=== PATIENT | female | born 1990 ===

== ENCOUNTER 2021-07-11 17:51 | Emergency (ER) | payer MEDICAID, SELFPAY ==
--- NOTE | ~2021-07-11 | CT_ITS ---
EXAMINATION: CT ABDOMEN AND PELVIS WITH CONTRAST CLINICAL INFORMATION: Abdominal pain COMPARISON: CT abdomen pelvis 09/24/2019 TECHNIQUE: Multidetector volumetric images were obtained from the superior aspect of the liver through the pubic symphysis following administration 82 mL of Omnipaque 350 intravenous contrast. Sagittal and coronal reformatted images were obtained on the technologist's workstation. Oral contrast: No This CT examination was performed using dose optimization techniques as appropriate, variously including the following: *Automated exposure control *Adjustment of mA and/or kV according to patient size (this includes techniques or standardized protocols for targeted exams where dose is matched to indication/reason for exam; i.e. extremities or head) *Use of iterative reconstruction technique DLP: 352 mGy-cm FINDINGS: LUNG BASES: The visualized lung bases are unremarkable. LIVER, GALLBLADDER, AND BILIARY TREE: The liver is normal in size, shape, and attenuation. No focal hepatic lesion or biliary ductal dilatation is present. The gallbladder is unremarkable with no evidence of radiopaque gallstones, gallbladder wall thickening, or obvious pericholecystic inflammatory changes. PANCREAS: Unremarkable. SPLEEN: Unremarkable. ADRENAL GLANDS: Unremarkable. KIDNEYS AND URETERS: The kidneys are normal in size, shape, and attenuation. A nonobstructing 3 mm left midpole renal calculus is seen. No hydronephrosis, hydroureter, or other calculi seen. No renal masses are detected. No perinephric stranding. BLADDER: Unremarkable. GASTROINTESTINAL TRACT: The small and large bowel are unremarkable. The appendix is unremarkable. ABDOMINAL WALL: No significant hernia is appreciated. LYMPH NODES: No retroperitoneal lymphadenopathy. VASCULAR: Unremarkable. PELVIC VISCERA: An anteverted uterus is present. An abnormal adnexal mass is not seen. No significant free fluid is present in the cul-de-sac. OSSEOUS STRUCTURES: Unremarkable. CT/CT abdomen pelvis w con IMPRESSION: 1. An etiology for the patient's acute abdominal pain has not been found 2. Incidental note made of a nonobstructing 3 mm left renal calculus.
[2021-07-11 18:18] VITALS: BP 114/84; PULSE 106; RESP 16; TEMP 36.7; O2SAT 98; BMI 25.4
[2021-07-11 20:15] LABS: MANUAL DIFF FLAG NO
[2021-07-11 20:22] LABS: Basophils Percent Auto 0.3 % (0-2); Eosinophils Absolute Auto 0.2 X10*3/uL (0.0-0.4); Eosinophils Percent Auto 1.9 % (0-4); Hematocrit 38.3 % (37-47); Hemoglobin 12.7 g/dl (12.0-16.0); Imm Gran Abs Auto 0.02 X10*3/uL (0.00-0.03); Imm Gran Pct Auto 0.3 % (0.0-0.4); Lymphocytes Absolute Auto 1.2 X10*3/uL (1.2-4.9); Lymphocytes Percent Auto 15.2 % (20-40); Mean Corpuscular HGB Conc 33.2 g/dl (31.0-35.0); Mean Corpuscular Hemoglobin 27.2 pg (27.0-33.0); Monocytes Absolute Auto 0.9 X10*3/uL (0.1-1.2); Monocytes Percent Auto 11.1 % (2-11); Neutrophils Absolute Auto 5.6 X10*3/uL (2.0-8.3); Neutrophils Percent Auto 71.2 % (45-73); Platelet Count 218 X10*3/uL (160-400); Red Blood Count 4.67 X10*6/uL (4.20-5.50); Red Cell Distribution Width 12.4 % (11.0-16.0); White Blood Count 7.8 X10*3/uL (4.8-10.8)
[2021-07-11 20:29] LABS: Alanine Aminotransferase 12 U/L (0-31); Albumin Level 4.3 g/dL (3.5-5.0); Alkaline Phosphatase 50 U/L (39-117); Anion Gap 11 (12-20); Aspartate Amino Transferase 14 U/L (5-31); Bilirubin Total 0.6 mg/dL (0.0-1.0); Blood Urea Nitrogen 10 mg/dL (9-16); Calcium 9.7 mg/dL (8.4-10.2); Carbon Dioxide 26 mmol/L (22-29); Chloride 106 mmol/L (96-108); Creatinine Clr Calc Pharmacy 79.9; Estimated Glomerular Filt Rate > 60; Glucose Random 94 mg/dL (60-115); Potassium 4.5 mmol/L (3.3-5.1); Sodium 138 mmol/L (135-145); Total Protein 7.9 g/dL (6.5-8.0)
[2021-07-11 20:52] LABS: Appearance Urine TURBID; Color Urine RED; Glucose Urine UA NEG (NEG); Leukocyte Esterase Urine TRACE (NEG); Nitrite Urine NEG (NEG); PH 5.5 (5.0-8.0); Specific Gravity - Urine >= 1.030 (1.005-1.025); UACC Culture Trigger YES; Urine Blood 3+ (NEG); Urine Ketones 5 MG/DL (NEG); Urine Protein 2+ MG/DL (NEG-TRACE)
[2021-07-11 21:10] LABS: UPreg QC Valid YES; Urine Pregnancy NEGATIVE (NEGATIVE)
[2021-07-11 21:14] LABS: Bacteria Urine TRACE /LPF; RBC Urine TNTC /HPF (0); Squamous Epithelial Cell Urine TRACE /LPF; WBC Urine 0-2 /HPF (0-4)
[2021-07-11] MEDS: Acetaminophen 325 MG TABLET 975 MG PO (21:33)
[2021-07-11] MEDS: 0.9 % Sodium Chloride 1,000 ML 999 ML IV (21:40)
--- NOTE | 2021-07-11 21:42 | ED_ITS ---
HPI - Abdominal Pain General Chief Complaint: Abdominal Pain Stated Complaint: abd pain Time Seen by Provider: 07/11/21 21:16 Source: patient Mode of arrival: ambulatory History of Present Illness HPI narrative: 31-year-old female with history of asthma presents with right lower/flank pain that started this evening at approximately 7:00 p.m. and has been associated with chills, nausea, vomiting but denies any diarrhea, shortness of breath, or intra-abdominal surgical history. In addition, patient denies any urinary pain/burning/frequency. Related Data Previous Rx's Medication Instructions Recorded tamsulosin 0.4 mg capsule (Flomax) 0.4 mg PO BEDTIME 4 Days #4 cap 07/11/21 Allergies Allergy/AdvReac Type Severity Reaction Status Date / Time No Known Allergies Allergy Unverified 07/19/20 15:55 Review of Systems Review of Systems Pertinent positives or negatives as stated in HPI 10 point review of systems is otherwise negative. Physical Exam Vital Signs: Vital Signs: Last Vital Signs Temp 98.1 F 07/11/21 18:18 Pulse 66 07/11/21 22:47 Resp 16 07/11/21 22:47 BP 115/68 07/11/21 22:48 Pulse Ox 100 07/11/21 22:00 Body Mass Index 25.4 VITAL SIGNS: Reviewed. GENERAL: Well developed, well nourished, in no acute distress. HEAD: Normocephalic/atraumatic EYES: PERRLA, EOMI OROPHARYNX: no oral lesions noted, posterior pharynx clear LUNGS: Normal breath sounds. No adventitious sounds or accessory muscle use. SpO2<98> CARDIOVASCULAR: Regular rate and rhythm without noted murmurs, no JVD or lower extremity edema. ABDOMEN: Soft, tenderness and right lower quadrant without rebound, no CVA tenderness, non-distended with bowel sounds SKIN: Inspection of the skin reveals no rashes NEUROLOGIC: Alert and oriented x 4. Strength and sensation to light touch were grossly intact x 4. Course Course Course Narrative: 31-year-old female with history and clinical presentation suggestive of appendicitis, renal colic, UTI, less likely felt to be pyelonephritis or ovarian torsion and is patient is started your. Less likely to be ectopic although this will be ruled out. Review of all investigations only significant for nonobstructing 3 mm stone. On re-evaluation patient is feeling much better after receiving combination analgesics as well as IV fluids. Patient will be discharged in stable condition she was informed of all results. MDM - Abdominal Pain Lab Data Result diagrams: 07/11/21 20:07 07/11/21 20:07 Labs: Lab Results 07/11/21 07/11/21 07/11/21 Range/Units 20:07 20:07 20:44 WBC 7.8 (4.8-10.8) X10*3/uL RBC 4.67 (4.20-5.50) X10*6/uL Hgb 12.7 (12.0-16.0) g/dl Hct 38.3 (37-47) % MCV 82.0 (80-98) fL MCH 27.2 (27.0-33.0) pg MCHC 33.2 (31.0-35.0) g/dl RDW 12.4 (11.0-16.0) % Plt Count 218 (160-400) X10*3/uL MPV 11.0 (9.4-12.3) fL Immature Gran % (Auto) 0.3 (0.0-0.4) % Neut % (Auto) 71.2 (45-73) % Lymph % (Auto) 15.2 L (20-40) % [place] % (Auto) 11.1 H (2-11) % Eos % (Auto) 1.9 (0-4) % Baso % (Auto) 0.3 (0-2) % Lymph # (Auto) 1.2 (1.2-4.9) X10*3/uL [place] # (Auto) 0.9 (0.1-1.2) X10*3/uL Eos # (Auto) 0.2 (0.0-0.4) X10*3/uL Baso # (Auto) 0.0 (0.0-0.2) X10*3/uL Abs Immat Gran (auto) 0.02 (0.00-0.03) X10*3/uL Absolute Neuts (auto) 5.6 (2.0-8.3) X10*3/uL Absolute Nucleated RBC 0.000 (0.0-0.012) X10*3/uL Nucleated RBC % (auto) 0.0 (0.0-0.2) /100WBC Sodium 138 (135-145) mmol/L Potassium 4.5 (3.3-5.1) mmol/L Chloride 106 (96-108) mmol/L Carbon Dioxide 26 (22-29) mmol/L Anion Gap 11 L (12-20) BUN 10 (9-16) mg/dL Creatinine 0.84 (0.5-1.4) mg/dL Estim Creat Clear Calc 79.9 Estimated GFR > 60 Random Glucose 94 (60-115) mg/dL Calcium 9.7 (8.4-10.2) mg/dL Total Bilirubin 0.6 (0.0-1.0) mg/dL AST 14 (5-31) U/L ALT 12 (0-31) U/L Alkaline Phosphatase 50 (39-117) U/L Total Protein 7.9 (6.5-8.0) g/dL Albumin 4.3 (3.5-5.0) g/dL Urine Color RED Urine Appearance TURBID Urine pH 5.5 (5.0-8.0) Ur Specific [place] >= 1.030 H (1.005-1.025) Urine Protein 2+ H (NEG-TRACE) MG/DL Urine Glucose (UA) NEG (NEG) MG/DL Urine Ketones 5 (NEG) MG/DL Urine Blood 3+ H (NEG) Urine Nitrite NEG (NEG) Ur Leukocyte Esterase TRACE H (NEG) Urine RBC TNTC H (0) /HPF Urine WBC 0-2 (0-4) /HPF Ur Squamous Epith Cells TRACE /LPF Urine Bacteria TRACE /LPF Urine Test (NEGATIVE) 07/11/21 Range/Units 20:44 WBC (4.8-10.8) X10*3/uL RBC (4.20-5.50) X10*6/uL Hgb (12.0-16.0) g/dl Hct (37-47) % MCV (80-98) fL MCH (27.0-33.0) pg MCHC (31.0-35.0) g/dl RDW (11.0-16.0) % Plt Count (160-400) X10*3/uL MPV (9.4-12.3) fL Immature Gran % (Auto) (0.0-0.4) % Neut % (Auto) (45-73) % Lymph % (Auto) (20-40) % [place] % (Auto) (2-11) % Eos % (Auto) (0-4) % Baso % (Auto) (0-2) % Lymph # (Auto) (1.2-4.9) X10*3/uL [place] # (Auto) (0.1-1.2) X10*3/uL Eos # (Auto) (0.0-0.4) X10*3/uL Baso # (Auto) (0.0-0.2) X10*3/uL Abs Immat Gran (auto) (0.00-0.03) X10*3/uL Absolute Neuts (auto) (2.0-8.3) X10*3/uL Absolute Nucleated RBC (0.0-0.012) X10*3/uL Nucleated RBC % (auto) (0.0-0.2) /100WBC Sodium (135-145) mmol/L Potassium (3.3-5.1) mmol/L Chloride (96-108) mmol/L Carbon Dioxide (22-29) mmol/L Anion Gap (12-20) BUN (9-16) mg/dL Creatinine (0.5-1.4) mg/dL Estim Creat Clear Calc Estimated GFR Random Glucose (60-115) mg/dL Calcium (8.4-10.2) mg/dL Total Bilirubin (0.0-1.0) mg/dL AST (5-31) U/L ALT (0-31) U/L Alkaline Phosphatase (39-117) U/L Total Protein (6.5-8.0) g/dL Albumin (3.5-5.0) g/dL Urine Color Urine Appearance Urine pH (5.0-8.0) Ur Specific [place] (1.005-1.025) Urine Protein (NEG-TRACE) MG/DL Urine Glucose (UA) (NEG) MG/DL Urine Ketones (NEG) MG/DL Urine Blood (NEG) Urine Nitrite (NEG) Ur Leukocyte Esterase (NEG) Urine RBC (0) /HPF Urine WBC (0-4) /HPF Ur Squamous Epith Cells /LPF Urine Bacteria /LPF Urine Test NEGATIVE (NEGATIVE) Discharge Plan Discharge Clinical Impression: Renal colic Patient Disposition: Home, Self-Care Instructions: Renal Colic (ED), Ureteral Stones (ED) Additional Instructions: 1. Increase fluid hydration especially with water. Avoid all caffeinated/carbonated beverages when possible. 2. Recommend [id number] Tylenol/ibuprofen as needed for pain control and follow-up with the urologist, provided referral below. Return to the ER for acute worsening of her symptoms. Prescriptions: New tamsulosin [Flomax] 0.4 mg capsule 0.4 mg PO BEDTIME 4 Days Qty: 4 RF: 0 Referrals: Dre Alejandre MD [Physician] - 2 days (Eval for renal stones, 3mm, placed on flomax) PMFSH Past Medical History Source: nursing notes reviewed Social History Social History Advance Directives: No
[2021-07-11] MEDS: Ketorolac Tromethamine 15 MG/ML VIAL IVPUSH (21:44)
[2021-07-11 22:00] VITALS: BP 132/77; PULSE 76; RESP 16; O2SAT 100
[2021-07-11 22:47] VITALS: BP 115/68; PULSE 66; RESP 16
[2021-07-11 22:48] VITALS: BP 115/68
[2021-07-11] MEDS: iohexoL 350 MG/ML 100 ML INFUS..BTL IV (23:01)
== END 2021-07-12 00:08 | disposition home or self-care (01) ==
PROVIDERS: Emergency Medicine; Emergency Provider Student in an Organized Health Care Education/Training Program; PCP Nurse Practitioner Family
DX: N20.0 Calculus of kidney (principal); R10.9 Unspecified abdominal pain
CPT/HCPCS: 36415; 74177; 80053; 81001; 81003; 81025; 85025; 87086; 96361; 96374; 99284; J1885; Q9967

== ENCOUNTER 2022-11-25 08:51 | Emergency (ER) | payer MEDICAID, SELFPAY ==
--- NOTE | ~2022-11-25 | XR_ITS ---
EXAMINATION: XR SHOULDER, LEFT CLINICAL INFORMATION: Atraumatic left shoulder pain with history of repetitive movement COMPARISON: None TECHNIQUE: Four views of the left shoulder. FINDINGS: No fracture or dislocation. The glenohumeral joint is well aligned. The acromioclavicular joint is intact. The visualized lung is clear. The visualized ribs are intact. XR/XR shoulder LT min 2V IMPRESSION: Normal left shoulder.
[2022-11-25 08:56] VITALS: BP 144/89; PULSE 82; RESP 16; TEMP 36.3; O2SAT 100; BMI 23.4
--- OUTSIDE RECORDS SUMMARY | 2022-11-25 09:03 | XMS_ITS | Continuity of Care Document ---
:1990 Author Organization [facility] Adult Address [address] [place] [address]- Care Team Providers Name Role Phone Fariba WHALEN, Tanya Primary Care Physician [facility]counter [facility] Date(s): 05/17/21 - 05/24/21 [facility] [address] [place] [address]- Encounter Diagnosis Generalized anxiety disorder with panic attacks (Discharge Diagnosis) - 05/17/21 Attending Physician: Not on Staff, Attending MD Allergies, Adverse Reactions, Alerts Substance Reaction Severity Status NKA Active Immunizations Given and Recorded Vaccine Date Status Refusal Reason Influenza Virus Vaccine (oldterm) 08/16/20 Recorded tetanus/diphtheria/pertussis, acel(Tdap) 09/23/19 Given tetanus/diphtheria/pertussis, acel(Tdap) 08/11/13 Given tetanus/diphtheria/pertussis, acel(Tdap) 12/11/09 Recorde d influenza virus vaccine, inactivated 09/23/19 Given influenza virus vaccine, inactivated 08/11/13 Given tetanus-diphtheria toxoids (Td) 03/12/01 Recorded Hepatitis B Vaccine (old term) 01/31/01 Recorded Hepatitis B Vaccine (old term) 10/02/00 Recorded Hepatitis B Vaccine (old term) 08/02/00 Recorded Measles/Mumps/Rubella Virus Vaccine 01/01/96 Recorded Measles/Mumps/Rubella Virus Vaccine 10/02/90 Recorded Poliovirus Vaccine, Inactivated 09/03/93 Recorded Poliovirus Vaccine, Inactivated 08/07/92 Recorded Poliovirus Vaccine, Inactivated 07/27/91 Recorded Poliovirus Vaccine, Inactivated 10/11/90 Recorded diphtheria/tetanus/pertussis, acel(DTaP) 02/12/93 Recorde d diphtheria/tetanus/pertussis, acel(DTaP) 08/07/92 Recorde d diphtheria/tetanus/pertussis, acel(DTaP) 07/27/91 Recorde d diphtheria/tetanus/pertussis, acel(DTaP) 10/11/90 Recorde d Haemophilus B Conj Vaccine (oldterm) 10/11/90 Recorded Medications Vistaril pamoate 25 mg oral capsule 1 capsule = 25 mg, By Mouth, Daily, PRN for anxiety, # 10 capsule, 0 Refills, Acute 06/15/21 7:16:00EDT, 05/17/21 7:15:00 EDT, Capsule, [id number], 155, cm, 05/17/21 7:07:00 EDT, Height Start Date: 05/17/21 Stop Date: 06/15/21 Status: Ordered Problem List Condition Effective Dates Status Health Status Informant Asthma(Confirmed) Active High blood pressure(Confirmed) Active Renal calculus, bilateral(Confirmed) Active Paroxysmal vertigo(Confirmed) Active Diagnosis Diagnosis Type Effective Dates Health Clinical Infor mant Status Service Generalized Discharge 05/17/21 anxiety disorder Diagnosis with panic attacks Vital Signs Most recent to oldest [Reference Range]: 1 Height 155 cm (05/17/21 7:07 AM) Social History Social History Type Response Smoking Status Never (less than 100 in life time) entered on: 10/04/20 Sex
--- OUTSIDE RECORDS SUMMARY | 2022-11-25 09:03 | XMS_ITS | Continuity of Care Document ---
:1990 Author Organization [facility] Adult Address [address] [place] [address]- Care Team Providers Name Role Phone Fariba WHALEN, Tanya Primary Care Physician Encounter [facility] Date(s): 10/04/20 - 10/11/20 [facility] [address] [place] [address]- Encounter Diagnosis Nausea in adult (Discharge Diagnosis) - 10/04/20 Attending Physician: Ilir Baldwin MD Allergies, Adverse Reactions, Alerts Substance Reaction [...] Haemophilus B Conj Vaccine (oldterm) 10/11/90 Recorded Problem List Condition Effective Dates Status Health Status Informant Asthma(Confirmed) Active High blood pressure(Confirmed) Active Renal calculus, bilateral(Confirmed) Active Well adult exam(Confirmed) Active Diagnosis Diagnosis Type Effective Dates Health Status Clinical In formant Service Nausea in adult Discharge 10/04/20 Diagnosis Vital Signs Most recent to oldest [Reference Range]: 1 Height 155 cm (10/04/20 9:53 AM) Social History Social History Type Response Smoking Status Never (less than 100 in life time) entered on: 10/04/20 Sex
--- OUTSIDE RECORDS SUMMARY | 2022-11-25 09:03 | XMS_ITS | Continuity of Care Document ---
:1990 Author Organization [facility] Adult Address [address] [place] [address]- Care Team Providers Name Role Phone Fariba WHALEN, Tanya Primary Care Physician [facility]counter [facility] Date(s): 10/04/20 - 11/03/20 [facility] [address] [place] [address]- Attending Physician: AdmTiara herrera Admitting Physician: AdmtrTiara Referring Physician: Admtr, Ar8 Allergies, Adverse Reactions, Alerts Substance Reaction Severity [...] calculus, bilateral(Confirmed) Active Well adult exam(Confirmed) Active Social History Social History Type Response Smoking Status Never (less than 100 in life time) entered on: 10/04/20 Sex
--- OUTSIDE RECORDS SUMMARY | 2022-11-25 09:03 | XMS_ITS | Continuity of Care Document ---
:1990 Author Organization [facility] Adult Address [address] [place] [address]- Care Team Providers Name Role Phone Fariba WHALEN, Tanya Primary Care Physician [facility]counter [facility] Date(s): 12/28/20 - 01/04/21 [facility] [address] [place] [address]- Encounter Diagnosis Paroxysmal vertigo (Discharge Diagnosis) - 12/31/20 Attending Physician: Alma Ray NP Allergies, Adverse Reactions, Alerts Substance Reaction Severity [...] B Conj Vaccine (oldterm) 10/11/90 Recorded Medications No Known Medications Problem List Condition Effective Dates Status Health Status Informant Asthma(Confirmed) Active High blood pressure(Confirmed) Active Renal calculus, bilateral(Confirmed) Active Paroxysmal vertigo(Confirmed) Active Diagnosis Diagnosis Type Effective Dates Health Clinical Infor mant Status Service Paroxysmal Discharge 12/31/20 vertigo Diagnosis Vital Signs Most recent to oldest [Reference Range]: 1 Height 155 cm (12/28/20 2:13 PM) Weight 56.4 kg (12/28/20 2:13 PM) Oxygen Saturation [94-100 %] 99 % (12/28/20 2:13 PM) Pulse Rate [55-90 bpm] 94 bpm *H* (12/28/20 2:13 PM) Body Mass Index [18.5-24.99] 23.48 (12/28/20 2:13 PM) Blood Pressure [90-138/55-84 mm Hg] 118/76 mm Hg (12/28/20 2:13 PM) Respiratory Rate [16-30 br/min] 18 br/min (12/28/20 2:13 PM) Temperature [96.8-100.4 DegF] 98.4 DegF (12/28/20 2:13 PM) Mode of Delivery (Oxygen) Room air (12/28/20 2:13 PM) Blood pressure sites Arm, right (12/28/20 2:13 PM) Temperature Route Oral (12/28/20 2:13 PM) Weight Obtained Via Standing scale (12/28/20 2:13 PM) Social History Social History Type Response Smoking Status Never (less than 100 in life time) entered on: 10/04/20 Sex
--- OUTSIDE RECORDS SUMMARY | 2022-11-25 09:03 | XMS_ITS | Continuity of Care Document ---
:1990 Author Organization [facility] Adult Address [address] [place] [address]- Care Team Providers Name Role Phone Tanya Link NP Primary Care Physician Encounter [facility] Date(s): 08/09/21 - 09/08/21 [facility] [address] [place] [address]- Attending Physician: AdmTiara herrera Admitting Physician: AdmtrTiara [...] B Conj Vaccine (oldterm) 10/11/90 Recorded Medications ondansetron 4 mg oral tablet 1 tablet = 4 mg, By Mouth, Every 8 hours, PRN Nausea, # 15 tablet, 0 Refills, Maintenance, 08/09/21 11:39:00 EDT, [facility]/pharm[facility] #[id number], Partial fill upon patient request if the prescription is for a schedule II opioid drug., 155, cm, 08/09/21 10:42:00 E... Start Date: 08/09/21 Status: Ordered Problem List Condition Effective Dates Status Health Status Informant Asthma(Confirmed) Active High blood pressure(Confirmed) Active Renal calculus, bilateral(Confirmed) Active Paroxysmal vertigo(Confirmed) Active Social History Social History Type Response Smoking Status Never (less than 100 in life time) entered on: 10/04/20 Sex
--- OUTSIDE RECORDS SUMMARY | 2022-11-25 09:03 | XMS_ITS | Continuity of Care Document ---
:1990 Author Organization [facility] Adult Address [address] [place] [address]- Care Team Providers Name Role Phone Fariba WHALEN, Tanya Primary Care Physician Encounter [facility] Date(s): 05/16/21 - 06/15/21 [facility] [address] [place] [address]- Allergies, Adverse Reactions, Alerts Substance Reaction Severity [...]
--- OUTSIDE RECORDS SUMMARY | 2022-11-25 09:03 | XMS_ITS | Continuity of Care Document ---
:1990 Author Organization [facility] Adult Address [address] [place] [address]- Care Team Providers Name Role Phone Fariba WHALEN, Tanya Primary Care Physician Encounter [facility] Date(s): 12/27/20 - 01/26/21 [facility] [address] [place] [address]- Allergies, Adverse Reactions, Alerts Substance Reaction Severity [...]
--- OUTSIDE RECORDS SUMMARY | 2022-11-25 09:03 | XMS_ITS | Continuity of Care Document ---
:1990 Author Organization [facility] Adult Address [address] [place] [address]- Care Team Providers Name Role Phone Tanya Link NP Primary Care Physician Encounter [facility] Date(s): 08/09/21 - 08/16/21 [facility] [address] [place] [address]- Attending Physician: Daniel Gillespie MD Referring Physician: Tanya Link NP Allergies, Adverse Reactions, Alerts Substance Reaction [...] tablet, 0 Refills, Maintenance, 08/09/21 11:39:00 EDT, [facility]/pharmacy #[id number], Partial fill upon patient request if the prescription is for a schedule II opioid drug., 155, cm, 08/09/21 10:42:00 E... Start Date: 08/09/21 Status: Ordered Problem List Condition Effective Dates Status Health Status Informant Asthma(Confirmed) Active High blood pressure(Confirmed) Active Renal calculus, bilateral(Confirmed) Active Paroxysmal vertigo(Confirmed) Active Vital Signs Most recent to oldest [Reference Range]: 1 Height 155 cm (08/09/21 10:42 AM) Social History Social History Type Response Smoking Status Never (less than 100 in life time) entered on: 10/04/20 Sex
--- OUTSIDE RECORDS SUMMARY | 2022-11-25 09:03 | XMS_ITS | Continuity of Care Document ---
:1990 Author Organization [facility] Adult Address [address] [place] [address]- Care Team Providers Name Role Phone Fariba WHALEN, Tanya Primary Care Physician Encounter [facility] Date(s): 05/17/21 - 06/16/21 [facility] [address] [place] [address]- Attending Physician: AdmTiara herrera Admitting Physician: AdmtrTiara [...]
[2022-11-25] MEDS: Cyclobenzaprine HCl 10 MG TABLET PO (09:47)
[2022-11-25] MEDS: NaPROXEN 500 MG TABLET PO (09:47)
--- NOTE | 2022-11-25 10:14 | ED.NECK ---
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) Associated symptoms: none Treatments prior to arrival: none Related Data Previous Rx's Medication Instructions Recorded tamsulosin 0.4 mg capsule (Flomax) 0.4 mg PO BEDTIME 4 days #4 caps 07/11/21 cyclobenzaprine 10 mg tablet 10 mg PO Q8H #14 tabs 11/25/22 naproxen 500 mg tablet 500 mg PO BID PRN pain #14 tabs 11/25/22 Allergies Allergy/AdvReac Type Severity Reaction Status Date / Time No Known Allergies Allergy Verified 11/25/22 08:58 Review of Systems Review of Systems: Constitutional : No trauma, No Weight loss, No Fever, No Chills, ENT/Mouth : No Hearing loss, No Ear Pain, No Nasal Congestion, No Sinus Pain, No Hoarseness, No sore throat, No Rhinorrhea, No Swallowing Difficulty Cardiovascular : No Chest Pain, No SOB Respiratory : No Cough, No Dyspnea Gastrointestinal : No Nausea, No Vomiting, No Diarrhea, No abdominal Pain, No Hematochezia, No Melena Genitourinary : No Dysuria, No Urinary Frequency, No Hematuria, No Urinary or Bowel Incontinence/retention Musculoskeletal : + Neck pain, + left shoulder pain, No Back pain, No joint stiffness, No joint swelling Skin : No Skin Lesions, No rash or signs of infection Neuro : nO Tingling to b/l arms/legs, No Weakness, No radiation, No Numbness, No headache, no loss of bowel or bladder incontinence, no saddle anesthesia Denies history of IV drug usage. Yes all other systems are reviewed and are negative PMFSH Past Medical History Attestation statement: The following information was validated with the patient. Source: old records reviewed and nursing notes reviewed Medical History Asthma Social History Social History Alcohol intake: current Alcohol intake frequency: holidays/special occasions only Smoked in Last 30 Days: No Use of substances other than those prescribed or required for medical reasons: No Advance Directives: No Advance Directives Information Provided: No Patient : No Physical Exam Vital Signs: Vital Signs: Last Vital Signs Temp 97.3 F 11/25/22 08:56 Pulse 82 11/25/22 08:56 Resp 16 11/25/22 08:56 BP 144/89 H 11/25/22 08:56 Pulse Ox 100 11/25/22 08:56 O2 Del Method 11/25/22 08:56 BMI result Body Mass Index 23.4 vital signs have been reviewed as normal and appeared to be correct. Blood pressure normal. Heart rate normal. Respiration rate normal. Temperature normal. Oxygen saturation normal. Appearance: Alert. Oriented X3. No acute distress. Head: Normal external exam. Normocephalic. Atraumatic. Eyes: PERRLA. EOMI. Conjunctiva and sclera normal. Eyelids normal. ENT: Pharynx normal. Uvula midline. Moist mucous membranes. No trismus noted. No drooling noted. No muffled voice noted. Neck: Normal inspection. Neck supple. FROM. No adenopathy. Thyroid Normal. Trachea midline. No meningeal signs. No neck mass noted. Tender to palpation of bilateral paracervical musculature and mid cervical tenderness. No step-offs or deformities noted. Patient neuro intact bilaterally and distally on all 4 extremities. Reflexes intact bilaterally and distally in all 4 extremities. No rashes/lesion/induration/fluctuance or signs of infection noted. No edema noted. CVS: Normal heart rate and rhythm. Heart sound normal. No murmurs noted. Pulses normal throughout. Respiratory: No respiratory distress. Painless inspiration. Breath sounds normal. No wheezes/rales/rhonchi noted. Chest nontender. No accessory muscle usage noted or decreased air movement noted. Back: Full range of motion noted. No obvious deformities, or edema. Full ROM in back and lower extremities. Skin: Skin warm and dry. Normal skin color. Normal skin turgor. No rashes/lesions/lacerations noted. Extremities: mild tenderness to the left AC joint. No obvious deformities. No obvious ligamentous or tendon injury noted. She has full range of motion of the left shoulder. No rashes or signs of infection. Not consistent with septic joint. Otherwise all other extremities exhibit normal range of motion nontender. No extremity edema is noted. Normal pulses. Normal capillary refill. Neuro: Oriented X 3. No motor deficit. No sensory deficit. Reflexes normal. Normal steady gait. Course Course Course Narrative: Pt c likely muscular pain, but could be herniated disc. Neuro exam shows no deficits. Not c/w vascular etiology, perivertebral / other soft tissue neck / airway infection, or spinal fx / process. X-ray of left shoulder obtained and negative for any acute processes. Patient most likely muscular skeletal pain. She was given naproxen and Flexeril reports symptomatic relief. Therefore at this time will DC home with symptomatic treatment instructions return if any new or worsening symptoms to follow up with primary care provider. Patient understands agrees with this plan. Medications Administered Discontinued Medications Generic Name Dose Route Start Last Admin Trade Name Freq PRN Reason Stop Dose Admin Cyclobenzaprine HCl 10 mg 11/25/22 09:27 11/25/22 09:47 Cyclobenzaprine Hcl 10 Mg Tablet PO 11/25/22 09:28 10 mg ONCE ONE Administration Naproxen 500 mg 11/25/22 09:27 11/25/22 09:47 Naproxen 500 Mg Tablet PO 11/25/22 09:28 500 mg ONCE ONE Administration Medical Decision Making Independent Interpretation I performed an independent interpretation of an: Plain X-Ray Interpretation: FINDINGS: No fracture or dislocation. The glenohumeral joint is well aligned. The acromioclavicular joint is intact. The visualized lung is clear. The visualized ribs are intact.? XR/XR shoulder LT min 2V IMPRESSION: Normal left shoulder. Radiology Impression Discussion of test interpretation with radiology: I have reviewed the radiologist's reading. Discharge Plan Discharge Clinical Impression: Strain of neck muscle, Left shoulder strain Patient Disposition: Home, Self-Care Instructions: Muscle Strain (ED) Prescriptions: New naproxen 500 mg tablet 500 mg PO BID PRN (Reason: pain) Qty: 14 0RF cyclobenzaprine 10 mg tablet 10 mg PO Q8H Qty: 14 0RF No Action tamsulosin [Flomax] 0.4 mg capsule 0.4 mg PO BEDTIME 4 Days Qty: 4 0RF Referrals: Sangita Almanza NP [Primary Care Provider] - 2 days Stand Alone Forms: Work/School Release
== END 2022-11-25 10:31 | disposition home or self-care (01) ==
PROVIDERS: Emergency Provider Emergency Medicine; PCP Nurse Practitioner Family
DX: S13.4XXA Sprain of ligaments of cervical spine, initial encounter (principal); S46.912A Strain of unspecified muscle, fascia and tendon at shoulder and upper arm level, left arm, initial encounter; X50.3XXA Overexertion from repetitive movements, initial encounter; X50.0XXA Overexertion from strenuous movement or load, initial encounter; X50.9XXA Other and unspecified overexertion or strenuous movements or postures, initial encounter; Y93.9 Activity, unspecified; Y92.9 Unspecified place or not applicable; Y99.0 Civilian activity done for income or pay; Z79.899 Other long term (current) drug therapy
CPT/HCPCS: 73030; 99283; 99284

== ENCOUNTER 2023-07-30 19:12 | Emergency (ER) | payer OTHER, SELFPAY ==
[2023-07-30 19:23] VITALS: BP 148/94; PULSE 97; RESP 18; TEMP 37.3; O2SAT 100; BMI 23.2
--- NOTE | 2023-07-30 19:28 | ED.GENADULT ---
HPI - General Adult General Chief complaint: Upper Respiratory Symptoms Stated complaint: headache Time Seen by Provider: 07/30/23 21:13 Source: patient Mode of arrival: ambulatory Limitations: no limitations History of Present Illness HPI narrative: Patient comes to the emergency room complaining of diffuse body aches, sore throat pressure in the sinuses, nausea Related Data Previous Rx's Medication Instructions Recorded tamsulosin 0.4 mg capsule (Flomax) 0.4 mg PO BEDTIME 4 days #4 caps 07/11/21 cyclobenzaprine 10 mg tablet 10 mg PO Q8H #14 tabs 11/25/22 naproxen 500 mg tablet 500 mg PO BID PRN pain #14 tabs 11/25/22 ibuprofen 600 mg tablet 600 mg PO QID PRN fever or pain 07/30/23 #20 tabs ondansetron 4 mg disintegrating 4 mg PO Q6H PRN nausea and 07/30/23 tablet vomiting #10 tabs Allergies Allergy/AdvReac Type Severity Reaction Status Date / Time No Known Allergies Allergy Verified 07/30/23 19:23 Review of Systems Review of Systems: Constitutional : No Weight loss, No Fever, No Chills, No Night Sweats, complaining of fatigue, malaise ENT/Mouth : No Hearing loss, No Ear Pain, complaining of Nasal Congestion, complaining of Sinus Pain, No Hoarseness, complaining of mild sore throat, No Rhinorrhea, No Swallowing Difficulty Eyes: No Eye Pain, No Swelling, No Redness, No Foreign Body, No Discharge, No Vision Changes Cardiovascular : No Chest Pain, No SOB, No Dyspnea on Exertion, No Orthopnea, No Edema, No Palpitations Respiratory : No Cough, No Sputum, No Wheezing, No Smoke Exposure, No Dyspnea Gastrointestinal : No Nausea, No Vomiting, No Diarrhea, No Constipation, No abdominal Pain, No Hematochezia, No Melena Genitourinary : no irregular bleeding, No Dysuria, No Urinary Frequency, No Hematuria, No Urinary Incontinence, No Urgency, No Flank Pain, No Urinary Flow Changes, No Hesitancy Musculoskeletal : No joint pain, No Myalgias, No Joint Swelling Skin : No Skin Lesions, No rash Neuro : No Weakness, No Numbness, No Paresthesias, No Loss of Consciousness, No Dizziness, No Headache Psych : No Anxiety/Panic, No Depression, No SI/HI/AH/VH, No Social Issues, Heme/Lymph: No Bruising, No Bleeding,No Lymphadenopathy Endocrine : No Polyuria, No Polydipsia, No Temperature Intolerance [facility] Past Medical History Medical History Asthma Social History Social History Alcohol intake: current Alcohol intake frequency: holidays/special occasions only Advance Directives: No Advance Directives Information Provided: No Physical Exam ED Vital Signs: Vital Signs - 24 hr 07/30/23 19:23 07/30/23 20:33 Temperature 99.2 F 97.9 F Pulse Rate 97 76 Respiratory Rate 18 14 Blood Pressure 148/94 H 149/83 H Pulse Oximetry 100 97 Oxygen Delivery Method Room Air Room Air BMI result Body Mass Index 23.2 Const Other: Appearance: Alert. Oriented X3. No acute distress. Eyes: Pupils equal, round and reactive to light. ENT: Mildly erythematous oropharynx, no exudates Neck: Normal inspection. Neck supple. No lymph nodes noted. No crepitus CVS: Normal heart rate and rhythm. Pulses normal. Normal S1 and S2 Respiratory: No respiratory distress. Breath sounds normal. No Wheezing. No rales Abdomen: Soft and nontender. No rigidity. No distention. Skin: Skin warm and dry. Normal skin color. Normal skin turgor. Extremities: No lower extremity edema. No Lacerations. No Rash Neuro: Oriented X 3. No motor deficit. No sensory deficit. Moving all extremities. No slurred speech. CN 2 through 12 grossly intact Psych: calm, cooperative, normal affect Course Course Course Narrative: RME: 33 yold female presents to the ED for headache, sore throat, coughing, and nasal congestion. works in petroleum terminal plant operator care. Sars and strep ordered Medications Administered Discontinued Medications Generic Name Dose Route Start Last Admin Trade Name Freq PRN Reason Stop Dose Admin Dexamethasone Sodium Phosphate 4 mg 07/30/23 21:20 07/30/23 21:45 Dexamethasone Sod Phosphate 4 Mg/Ml Vial IVPUSH 07/30/23 21:21 4 mg ONCE ONE Administration Ibuprofen 600 mg 07/30/23 21:18 07/30/23 21:45 Ibuprofen 600 Mg Tablet PO 07/30/23 21:19 600 mg ONCE ONE Administration Ondansetron HCl 4 mg 07/30/23 21:18 07/30/23 21:46 Ondansetron Odt 4 Mg Tab.Abby ORTIZ 07/30/23 21:19 4 mg ONCE ONE Administration Medical Decision Making Medical Decision Making MDM Narrative: -patient likely has a viral illness. -my interpretation of labs: Negative for COVID and influenza -patient was given p.o. dexamethasone for symptomatic relief, ibuprofen and Zofran Differential Diagnosis Differential Diagnoses: The differential diagnosis associated with the presentation includes (Viral illness, viral pharyngitis, COVID, influenza) Lab Data Labs: Lab Results 07/30/23 Range/Units 19:30 Influenza Type A (PCR) NEGATIVE (Negative) Influenza Type B (PCR) NEGATIVE (Negative) RSV RNA Qual (PCR) NEGATIVE (Negative) SARS-CoV-2 RNA (RT-PCR) NEGATIVE (Negative) Discharge Plan Discharge Clinical Impression: Viral illness Patient Disposition: Home, Self-Care Instructions: Viral Syndrome (ED) Additional Instructions: Please follow-up with your primary care physician tomorrow. If you have any worsening or new symptoms, please return to the emergency room or call 911 Prescriptions: New ibuprofen 600 mg tablet 600 mg PO QID PRN (Reason: fever or pain) Qty: 20 0RF ondansetron 4 mg tablet,disintegrating 4 mg PO Q6H PRN (Reason: nausea and vomiting) Qty: 10 0RF No Action tamsulosin [Flomax] 0.4 mg capsule 0.4 mg PO BEDTIME 4 Days Qty: 4 0RF naproxen 500 mg tablet 500 mg PO BID PRN (Reason: pain) Qty: 14 0RF cyclobenzaprine 10 mg tablet 10 mg PO Q8H Qty: 14 0RF Stand Alone Forms: Work/School Release Interventions: ED Discharge Assessment Last Done: 07/30/23 21:57 Discharge Date/Time: 07/30/23 21:57
[2023-07-30 20:16] LABS: Influenza A PCR NEGATIVE (Negative); Influenza B PCR NEGATIVE (Negative); Resp Syncy Virus RNA Qual PCR NEGATIVE (Negative); SARS COV2 PCR INHOUSE NEGATIVE (Negative)
[2023-07-30 20:33] VITALS: BP 149/83; PULSE 76; RESP 14; TEMP 36.6; O2SAT 97
[2023-07-30 21:29] VITALS: BP 117/71; PULSE 93; RESP 16; TEMP 36.8; O2SAT 99
[2023-07-30] MEDS: dexAMETHasone sod phosphate 4 MG/ML VIAL IVPUSH (21:45)
[2023-07-30] MEDS: Ibuprofen 600 MG TABLET PO (21:45)
[2023-07-30] MEDS: Ondansetron ODT 4 MG TAB.RAPDIS TRANSLINGU (21:46)
== END 2023-07-30 21:57 | disposition home or self-care (01) ==
PROVIDERS: Physician Assistant; Emergency Provider Emergency Medicine
DX: B34.9 Viral infection, unspecified (principal); J02.9 Acute pharyngitis, unspecified; Z20.822 Contact with and (suspected) exposure to COVID-19; Z20.828 Contact with and (suspected) exposure to other viral communicable diseases
CPT/HCPCS: 0241U; 96374; 99283; 99284; J1100

== ENCOUNTER 2024-05-13 22:21 | Emergency (ER) | payer OTHER, SELFPAY ==
--- NOTE | ~2024-05-13 | XR_ITS ---
EXAMINATION: XR SHOULDER, RIGHT CLINICAL INFORMATION: Pain and numbness. COMPARISON: None available. TECHNIQUE: 3 radiographs of the right shoulder. FINDINGS: There is no fracture. The glenohumeral and acromioclavicular joints are intact. Joint spaces are maintained. The visualized right hemithorax is clear. The regional soft tissue is normal in appearance. XR/XR shoulder RT min 2V IMPRESSION: No fracture or dislocation.
[2024-05-13 22:36] VITALS: BP 177/100; PULSE 104; RESP 16; TEMP 36.7; O2SAT 100; BMI 21.7
== END 2024-05-14 06:01 | disposition left against medical advice (07) ==
LOC: HO.ED 05-14 05:58
PROVIDERS: Emergency Provider Emergency Medicine; PCP Nurse Practitioner Family
DX: M79.601 Pain in right arm (principal); M25.511 Pain in right shoulder
CPT/HCPCS: 73030; 99281; 99283

== ENCOUNTER 2025-07-15 15:34 | Emergency (ER) | payer MEDICAID, SELFPAY ==
--- NOTE | ~2025-07-15 | CT_ITS ---
CLINICAL HISTORY: sainz CT head without contrast Comparison: None provided Findings: No intra-axial mass, midline shift, hydrocephalus, or acute hemorrhage. No significant atrophy-like change or white matter disease. The visualized paranasal sinuses and mastoid air cells are normal. The orbits are within normal limits. No skull fracture. IMPRESSION: 1. No acute intracranial findings. This document has been electronically signed by: Windy Redman MD on 07/15/2025 19:29:50
[2025-07-15 15:42] VITALS: BP 165/98; PULSE 97; RESP 18; TEMP 36.4; O2SAT 100; BMI 21.7
--- NOTE | 2025-07-15 15:42 | ED_ITS ---
HPI - General Adult General Chief complaint: Headache Stated complaint: headache x2 wks Time Seen by Provider: 07/15/25 17:06 Related Data Previous Rx's ?Medication ?Instructions ?Recorded tamsulosin 0.4 mg capsule (Flomax) 0.4 mg PO BEDTIME 4 days #4 caps 07/11/21 cyclobenzaprine 10 mg tablet 10 mg PO Q8H #14 tabs naproxen 500 mg tablet 500 mg PO BID PRN pain #14 t abs 11/25/22 ibuprofen 600 mg tablet 600 mg PO QID PRN fever or p ain 07/30/23 #20 tabs ondansetron 4 mg disintegrating 4 mg PO Q6H PRN nausea and 07/30/23 tablet vomiting #10 tabs Allergies Allergy/AdvReac Type Severity Reaction Status Date / Time No Known Allergies Allergy Verified 07/15/25 15:43 [facility] Past Medical History Medical History Asthma Social History Social History Alcohol intake: current Alcohol intake frequency: holidays/special occasions only Advance Directives: No Advance Directives Information Provided: No Do you have a plan to hurt others: No Plan Physical Exam ED Vital Signs: Vital Signs - 24 hr 07/15/25 15:42 07/15/25 17:44 07/15/25 19:50 Temperature 97.5 F 97.6 F Pulse Rate 97 96 79 Respiratory Rate 18 14 16 Blood Pressure 165/98 H 157/96 H 132/83 Pulse Oximetry 100 100 100 Oxygen Delivery Method Room Air Room Air Room Air BMI result Body Mass Index 21.7 Course Course Course Narrative: Rapid medical examination performed in triage by Nadine Dumont PA-C. Patient is a 35 year old assigned female at presenting to the emergency department with a persistent headache. Detailed physical exam and review of systems are deferred to the sales agent trading stamps. Labs and swabs ordered. Patient placed back in the waiting room pending room availability and results. Medications Administered Discontinued Medications Generic Name Dose Route Start Last Admin Trade Name Freq PRN Reason Stop Dose Admin Diphenhydramine HCl 25 mg 07/15/25 17:45 07/15/25 18:36 Diphenhydramine Hcl 50 Mg/Ml Vial IVPUSH 07/15/25 17:46 25 mg ONCE ONE Administration Ketorolac Tromethamine 15 mg 07/15/25 17:45 07/15/25 18:37 Ketorolac Tromethamine 15 Mg/Ml Vial IVPUSH 07/15/25 17:46 15 mg ONCE ONE Administration Metoclopramide HCl 10 mg 07/15/25 17:45 07/15/25 18:39 Metoclopramide Hcl 10 Mg/2 Ml Vial IVPUSH 07/15/25 17:46 10 mg ONCE ONE Administration Medical Decision Making Lab Data 07/15/25 16:32 07/15/25 16:32 Labs: Lab Results 07/15/25 Range/Units 16:32 WBC 4.1 L (4.8-10.8) X10*3/uL RBC 4.67 (4.20-5.50) X10*6/uL Hgb 12.9 (12.0-16.0) g/dl Hct 37.4 (37.0-47.0) % MCV 80.1 (80.0-98.0) fL MCH 27.6 (27.0-33.0) pg MCHC 34.5 (31.0-35.0) g/dl RDW 12.4 (11.0-16.0) % Plt Count 197 (160-400) X10*3/uL MPV 10.6 (9.4-12.3) fL Immature Gran % (Auto) 0.2 (0.0-0.4) % Neut % (Auto) 55.6 (45-73) % Lymph % (Auto) 30.0 (20-40) % [place] % (Auto) 12.0 H (2-11) % Eos % (Auto) 1.7 (0-4) % Baso % (Auto) 0.5 (0-2) % Lymph # (Auto) 1.2 (1.2-4.9) X10*3/uL [place] # (Auto) 0.5 (0.1-1.2) X10*3/uL Eos # (Auto) 0.1 (0.0-0.4) X10*3/uL Baso # (Auto) 0.0 (0.0-0.2) X10*3/uL Abs Immat Gran (auto) 0.01 (0.00-0.03) X10*3/uL Absolute Neuts (auto) 2.3 (2.0-8.3) x10*3/uL Absolute Nucleated RBC 0.000 (0.0-0.012) X10*3/uL Nucleated RBC % (auto) 0.0 (0.0-0.2) /100WBC Sodium 137 (135-145) mmol/L Potassium 3.7 (3.3-5.1) mmol/L Chloride 103 (96-108) mmol/L Carbon Dioxide 24 (22-29) mmol/L Anion Gap 14 (12-20) BUN 9 (9-16) mg/dL Creatinine 0.76 (0.5-1.4) mg/dL Estim Creat Clear Calc 72.8 Estimated GFR > 60 Random Glucose 108 (60-115) mg/dL Calcium 9.4 (8.4-10.2) mg/dL Magnesium 1.9 (1.6-2.6) mg/dL Total Bilirubin 0.9 (0.0-1.0) mg/dL AST 21 (5-31) U/L ALT 15 (0-31) U/L Alkaline Phosphatase 49 (39-117) U/L Total Protein 8.1 H (6.5-8.0) g/dL Albumin 4.5 (3.5-5.0) g/dL Beta HCG, Quant < 2 mIU/mL COVID-19 (FERMIN) Negative (Negative) COVID-19 Clin Com See Note Influenza Type A (NASRIN) Negative (Negative) Influenza Type B (NASRIN) Negative (Negative) Influenza A & B Note See Note Discharge Plan Discharge Clinical Impression: Headache Patient Disposition: Home, Self-Care Instructions: Acute Headache (DC) Prescriptions: No Action tamsulosin [Flomax] 0.4 mg capsule 0.4 mg PO BEDTIME 4 Days Qty: 4 0RF naproxen 500 mg tablet 500 mg PO BID PRN (Reason: pain) Qty: 14 0RF cyclobenzaprine 10 mg tablet 10 mg PO Q8H Qty: 14 0RF ibuprofen 600 mg tablet 600 mg PO QID PRN (Reason: fever or pain) Qty: 20 0RF ondansetron 4 mg tablet,disintegrating 4 mg PO Q6H PRN (Reason: nausea and vomiting) Qty: 10 0RF Referrals: Physician,Unknown J [Primary Care Provider, Medical] - 07/19/25 Print Language: Estonian
[2025-07-15 16:37] LABS: MANUAL DIFF FLAG NO
--- OUTSIDE RECORDS SUMMARY | 2025-07-15 16:38 | XMS_ITS | Clinical Summary ---
Author Organization [facility] Address [address] [place] [address] [address] [place] [address] Care Team Providers Care Web Development Consultant Name Role Phone Unavailable Primary Care Provider Unavailabl e Immunizations Immunization Administration Dates Next Due INFLUENZA INJECTABLE QUADRIV ALANT CCIIV4 MDCK Multi-dose vial 08/13/2022 Influenza injectable quadrivalent preservative f ree 09/21/2023,10/02/2021 Social History Tobacco Use Types Packs/Day Years Used Date Smoking Tobacco: Never Assessed Comments Unknown Sex and Gender Information Value Date Recorded Sex Assigned at Female 09/01/2022 10:14 AM EDT Legal Sex Female 10:14 AM EDT Gender Identity Choose not to disclose 10:14 AM EDT Sexual Orientation Choose not to disclose 2021 10:14 AM EDT Plan of Treatment Health Maintenance Due Date Last Done Comments Depression Screening 1988 HIV Screening 1988 SDOH Screening 1988 Disability Screening 1988 Alcohol/Substance Use Screening 2000 Tobacco Screening 2000 Family Planning (PISQ) 01/02/2003 HPV Vaccines (1 - 3-dose series) 01/02/2003 Hepatitis C Screening 01/02/2006 DTaP/Tdap/Td Vaccines (1 - Tdap) 01/02/2007 Hepatitis B Vaccines (1 of 3 - 19+ 3-dose series) 01/02/2007 Pap Smear 01/02/2009 Cervical Cancer Screening 01/02/2018 HPV/Cotest 01/02/2018 COVID-19 Vaccine ( season) 2025 08/14/2022, 02/06/2022, 09/09/2021, Additional history exists Influenza Vaccine (#1) 2025 3, 08/13/2022, 10/02/2021 Zoster Vaccines (1 of 2) 01/02/2038 RSV Patients and Patients Aged 60 years or older (1 - 1-dose 75+ series) 01/02/2063 HIB Vaccines Aged Out No longer eligi ble based on patient's age to complete this topic Hepatitis A Vaccines Aged Out No long er eligible based on patient's age to complete this topic IPV Vaccines Aged Out No longer eligi ble based on patient's age to complete this topic Meningococcal B Vaccine Aged Out No l onger eligible based on patient's age to complete this topic Meningococcal Vaccine Aged Out No gerardo lamar eligible based on patient's age to complete this topic Pneumococcal Vaccine: Pediatrics (0 to 5 Years) and At-Risk Patients (6 to 49) Years Aged Out No longer eligible based on patient's age to complete this topic RSV under 20 months Aged Out No longe r eligible based on patient's age to complete this topic Rotavirus Vaccines Aged Out No longer eligible based on patient's age to complete this topic Insurance [facility]
[2025-07-15 16:39] LABS: Hematocrit 37.4 % (37.0-47.0); Hemoglobin 12.9 g/dl (12.0-16.0); Imm Gran Abs Auto 0.01 X10*3/uL (0.00-0.03); Imm Gran Pct Auto 0.2 % (0.0-0.4); Lymphocytes Absolute Auto 1.2 X10*3/uL (1.2-4.9); Mean Corpuscular HGB Conc 34.5 g/dl (31.0-35.0); Mean Corpuscular Hemoglobin 27.6 pg (27.0-33.0); Mean Corpuscular Volume 80.1 fL (80.0-98.0); NRBC Abs Auto 0.000 X10*3/uL (0.0-0.012); NRBC Pct Auto 0.0 /100WBC (0.0-0.2); Platelet Count 197 X10*3/uL (160-400); Red Blood Count 4.67 X10*6/uL (4.20-5.50); White Blood Count 4.1 X10*3/uL (4.8-10.8)
[2025-07-15 16:54] LABS: IDNOW Serial# 152EDE1D; Influenza B2 Negative (Negative)
[2025-07-15 16:55] LABS: COVID-19 Test Negative (Negative); IDNOW Serial# 16C4AD1C
[2025-07-15 17:00] LABS: Alanine Aminotransferase 15 U/L (0-31); Albumin Level 4.5 g/dL (3.5-5.0); Alkaline Phosphatase 49 U/L (39-117); Anion Gap 14 (12-20); Aspartate Amino Transferase 21 U/L (5-31); Blood Urea Nitrogen 9 mg/dL (9-16); Calcium 9.4 mg/dL (8.4-10.2); Carbon Dioxide 24 mmol/L (22-29); Chloride 103 mmol/L (96-108); Creatinine Clr Calc Pharmacy 72.8; Estimated Glomerular Filt Rate > 60; Magnesium 1.9 mg/dL (1.6-2.6); Potassium 3.7 mmol/L (3.3-5.1); Sodium 137 mmol/L (135-145); Total Protein 8.1 g/dL (6.5-8.0)
[2025-07-15 17:44] VITALS: BP 157/96; PULSE 96; RESP 14; O2SAT 100
--- NOTE | 2025-07-15 17:46 | ED.HA ---
HPI - Headache General Chief Complaint: Headache Stated Complaint: headache x2 wks Time Seen by Provider: 07/15/25 17:06 History of Present Illness HPI Narrative: Patient is a 35-year-old female presents today with having headache that is ongoing for the last 2 weeks. Patient has been trying to take some Advil with only moderate relief. Denies any changes in vision denies any fever chills denies any focal weakness. The headache has been frontal in nature. There is no trauma. Does not think she is her menstruation is due. Denies any coughing congestion upper respiratory symptoms denies any neck pain denies any diaphoresis. Patient is from home no sudden in the family. No travel history. The pain is not affected by light. Not affected by noise. Related Data Previous Rx's ?Medication ?Instructions ?Recorded tamsulosin 0.4 mg capsule (Flomax) 0.4 mg PO BEDTIME 4 days #4 caps 07/11/21 cyclobenzaprine 10 mg tablet 10 mg PO Q8H #14 tabs 11/25/22 naproxen 500 mg tablet 500 mg PO BID PRN pain #14 tabs 11/25/22 ibuprofen 600 mg tablet 600 mg PO QID PRN fever or pain 07/30/23 #20 tabs ondansetron 4 mg disintegrating 4 mg PO Q6H PRN nausea and 07/30/23 tablet vomiting #10 tabs Allergies Allergy/AdvReac Type Severity Reaction Status Date / Time No Known Allergies Allergy Verified 07/15/25 15:43 Review of Systems Review of Systems: Positive headache Yes all other systems are reviewed and are negative [facility] Past Medical History Attestation statement: The following information was validated with the patient. Source: unable to obtain Medical History Asthma Social History Social History Alcohol intake: current Alcohol intake frequency: holidays/special occasions only Advance Directives: No Advance Directives Information Provided: No Do you have a plan to hurt others: No Plan Physical Exam Exam: Exam: Appearance: Alert. Oriented X3. No acute distress. Eyes: Pupils equal, round and reactive to light. ENT: Pharynx normal. Neck: Normal inspection. Neck supple. No lymph nodes noted. No crepitus CVS: Normal heart rate and rhythm. Pulses normal. Normal S1 and S2 Respiratory: No respiratory distress. Breath sounds normal. No Wheezing. No rales Abdomen: Soft and nontender. No rigidity. No distention. good BS x4 Skin: Skin warm and dry. Normal skin color. Normal skin turgor. Extremities: No lower extremity edema. Neurovascular intact to all extremities. No Lacerations. No Rash Neuro: Oriented X 3. No motor deficit. No sensory deficit. Moving all extermities. No slurred speech Vital Signs: Vital Signs: Last Vital Signs Temp 97.5 F 07/15/25 15:42 Pulse 96 07/15/25 17:44 Resp 14 07/15/25 17:44 BP 157/96 H 07/15/25 17:44 Pulse Ox 100 07/15/25 17:44 O2 Del Method Room Air 07/15/25 17:44 BMI result Body Mass Index 21.7 Medications Administered Discontinued Medications Generic Name Dose Route Start Last Admin Trade Name Freq PRN Reason Stop Dose Admin Diphenhydramine HCl 25 mg 07/15/25 17:45 07/15/25 18:36 Diphenhydramine Hcl 50 Mg/Ml Vial IVPUSH 07/15/25 17:46 25 mg ONCE ONE Administration Ketorolac Tromethamine 15 mg 07/15/25 17:45 07/15/25 18:37 Ketorolac Tromethamine 15 Mg/Ml Vial IVPUSH 07/15/25 17:46 15 mg ONCE ONE Administration Metoclopramide HCl 10 mg 07/15/25 17:45 07/15/25 18:39 Metoclopramide Hcl 10 Mg/2 Ml Vial IVPUSH 07/15/25 17:46 10 mg ONCE ONE Administration Medical Decision Making Medical Decision Making [facility] Narrative: Patient well appearing no acute distress claims she has been having headaches for 2 weeks. Taking Advil with no relief. History not consistent with meningitis. We gave patient a migraine cocktail including Benadryl, Reglan, Toradol with good relief of symptoms. CT scan of the head showed no mass. No bleed. No fracture. Patient well-appearing. Will discharge home. Differential Diagnosis Differential Diagnoses: The differential diagnosis associated with the presentation includes Tension headache, migraine, meningitis, mass Admission/Observation Consideration of admission/observation: Escalation of care including admission/observation considered Lab Data [facility] Lab Attestation statement: I reviewed the patient's lab results. 07/15/25 16:32 07/15/25 16:32 Labs: Lab Results 07/15/25 Range/Units 16:32 WBC 4.1 L (4.8-10.8) X10*3/uL RBC 4.67 (4.20-5.50) X10*6/uL Hgb 12.9 (12.0-16.0) g/dl Hct 37.4 (37.0-47.0) % MCV 80.1 (80.0-98.0) fL MCH 27.6 (27.0-33.0) pg MCHC 34.5 (31.0-35.0) g/dl RDW 12.4 (11.0-16.0) % Plt Count 197 (160-400) X10*3/uL MPV 10.6 (9.4-12.3) fL Immature Gran % (Auto) 0.2 (0.0-0.4) % Neut % (Auto) 55.6 (45-73) % Lymph % (Auto) 30.0 (20-40) % [place] % (Auto) 12.0 H (2-11) % Eos % (Auto) 1.7 (0-4) % Baso % (Auto) 0.5 (0-2) % Lymph # (Auto) 1.2 (1.2-4.9) X10*3/uL [place] # (Auto) 0.5 (0.1-1.2) X10*3/uL Eos # (Auto) 0.1 (0.0-0.4) X10*3/uL Baso # (Auto) 0.0 (0.0-0.2) X10*3/uL Abs Immat Gran (auto) 0.01 (0.00-0.03) X10*3/uL Absolute Neuts (auto) 2.3 (2.0-8.3) x10*3/uL Absolute Nucleated RBC 0.000 (0.0-0.012) X10*3/uL Nucleated RBC % (auto) 0.0 (0.0-0.2) /100WBC Sodium 137 (135-145) mmol/L Potassium 3.7 (3.3-5.1) mmol/L Chloride 103 (96-108) mmol/L Carbon Dioxide 24 (22-29) mmol/L Anion Gap 14 (12-20) BUN 9 (9-16) mg/dL Creatinine 0.76 (0.5-1.4) mg/dL Estim Creat Clear Calc 72.8 Estimated GFR > 60 Random Glucose 108 (60-115) mg/dL Calcium 9.4 (8.4-10.2) mg/dL Magnesium 1.9 (1.6-2.6) mg/dL Total Bilirubin 0.9 (0.0-1.0) mg/dL AST 21 (5-31) U/L ALT 15 (0-31) U/L Alkaline Phosphatase 49 (39-117) U/L Total Protein 8.1 H (6.5-8.0) g/dL Albumin 4.5 (3.5-5.0) g/dL Beta HCG, Quant < 2 mIU/mL COVID-19 (FERMIN) Negative (Negative) COVID-19 Clin Com See Note Influenza Type A (NASRIN) Negative (Negative) Influenza Type B (NASRIN) Negative (Negative) Influenza A & B Note See Note Independent Interpretation I performed an independent interpretation of an: CT Scan (CT head negative) Radiology Impression Discussion of test interpretation with radiology: I have reviewed the radiologist's reading. Independent Historian Additional history obtained through patient's family Social Determinants Patient?s care significantly limited by Social Determinants of Health including: Problems related to primary support group Discharge Plan Discharge Clinical Impression: Headache Patient Disposition: Home, Self-Care Instructions: Acute Headache (DC) Prescriptions: No Action tamsulosin [Flomax] 0.4 mg capsule 0.4 mg PO BEDTIME 4 Days Qty: 4 0RF naproxen 500 mg tablet 500 mg PO BID PRN (Reason: pain) Qty: 14 0RF cyclobenzaprine 10 mg tablet 10 mg PO Q8H Qty: 14 0RF ibuprofen 600 mg tablet 600 mg PO QID PRN (Reason: fever or pain) Qty: 20 0RF ondansetron 4 mg tablet,disintegrating 4 mg PO Q6H PRN (Reason: nausea and vomiting) Qty: 10 0RF Referrals: Physician,Unknown J [Primary Care Provider, Medical] - 07/19/25 Print Language: [place] Islander
[2025-07-15 19:50] VITALS: BP 132/83; PULSE 79; RESP 16; TEMP 36.4; O2SAT 100
[2025-07-15 20:19] VITALS: BP 132/83; PULSE 79; RESP 16; TEMP 36.4; O2SAT 100
== END 2025-07-15 20:25 | disposition home or self-care (01) ==
PROVIDERS: Physician Assistant Medical; Emergency Provider Emergency Medicine Emergency Medical Services
DX: R51.9 Headache, unspecified (principal); Z03.818 Encounter for observation for suspected exposure to other biological agents ruled out
CPT/HCPCS: 70450; 80053; 83735; 84702; 85025; 87502; 87635; 96374; 96375; 99283; 99284; J1200; J1885; J2765

== ENCOUNTER → 2025-07-15 17:45 | Outpatient (BNV) | payer MEDICAID, SELFPAY | PROVIDERS: Emergency Provider Emergency Medicine Emergency Medical Services; Visit Provider Radiology Diagnostic Radiology | DX: R51.9 Headache, unspecified (principal) | CPT/HCPCS: 70450 ==